=== PATIENT | female | born 1955 | race Caucasian/White ===

== ENCOUNTER → 2017-06-22 | Outpatient (CLI) | payer BC ==
--- NOTE | 2017-06-22 16:23 | XR ---
EXAMINATION TYPE: XR abdomen complete w decub DATE OF EXAM: 06/22/2017 HISTORY: Pain. Technique: 4 views of the abdomen are submitted. Comparison: None. Findings: There is no convincing evidence of pneumoperitoneum. The Bowel gas pattern is nonspecific and nonobstructive. No sizable air-fluid levels are seen. No mass effects are noted. No renal calcifications are identified. IMPRESSION: 1. Nonspecific nonobstructive bowel gas pattern
== END | disposition home or self-care (01) ==
LOC: RADXRMAIN 15:43
PROVIDERS: ATTEND Family Medicine
DX: R10.9 Unspecified abdominal pain (principal)
CPT/HCPCS: 74020

== ENCOUNTER → 2017-07-29 | Outpatient (CLI) | payer BC ==
--- NOTE | 2017-07-29 09:05 | MM ---
Reason for exam: additional evaluation requested from abnormal screening. Last mammogram was performed less than 1 month ago. History: Patient is postmenopausal. Took hormonal contraceptives for 16 years beginning at age 17. Physical Findings: Nurse did not find any significant physical abnormalities on exam. MG Work Up Mamm w CAD RT Spot compression CC, spot compression MLO, and ML view(s) were taken of the right breast. Prior study comparison: July 23, 2017, bilateral MG screening mammo w CAD. August 01, 2015, right breast MG 3d work up w/cad RT. The breast tissue is heterogeneously dense. This may lower the sensitivity of mammography. Asymmetry persists on spot compression and appears somewhat similar to prior exams. Precautionary ultrasound will be performed. These results were verbally communicated with the patient and result sheet given to the patient on 07/29/17. ASSESSMENT: Incomplete: need additional imaging evaluation, BI-RAD 0 RECOMMENDATION: Ultrasound of the right breast. (lower outer quadrant and if negative upper outer quadrant)
--- NOTE | 2017-07-29 09:08 | USB ---
Reason for exam: additional evaluation requested from abnormal screening. History: Patient is postmenopausal. Took hormonal contraceptives for 16 years beginning at age 17. US Breast Workup Limited RT Right breast ultrasound demonstrates no cystic or solid lesion seen. No suspicious sonographic finding. These results were verbally communicated with the patient and result sheet given to the patient on 07/29/17. ASSESSMENT: Benign, BI-RAD 2 RECOMMENDATION: Return to routine screening mammogram schedule for both breasts.
== END | disposition home or self-care (01) ==
LOC: RADMAMWWP 07:36
PROVIDERS: ATTEND Family Medicine
DX: R92.8 Other abnormal and inconclusive findings on diagnostic imaging of breast (principal)
CPT/HCPCS: 76642; G0206

== ENCOUNTER → 2017-08-03 | Outpatient (CLI) | payer BC ==
[2017-08-03 17:12] LABS: CH 29.7; CHCM 32.5; HCT 40.5 % (34.0-46.0); HDW 2.69; HGB 13.2 gm/dL (11.4-16.0); MCHC 32.6 g/dL (31.0-37.0); MCV 91.8 fL (80.0-100.0); Mean Platelet Volume 7.3; RBC 4.41 m/uL (3.80-5.40); RDW 13.6 % (11.5-15.5); WBC 10.4 k/uL (3.8-10.6)
[2017-08-03 17:35] LABS: Anion Gap 11 mmol/L; Blood Urea Nitrogen 10 mg/dL (7-17); Carbon Dioxide 26 mmol/L (22-30); Chloride 102 mmol/L (98-107); Non-African American GFR(MDRD) >60 (>60 ml/min/1.73 sqM); Potassium 3.9 mmol/L (3.5-5.1); Sodium 139 mmol/L (137-145)
--- NOTE | 2017-08-03 19:07 | CT ---
EXAMINATION TYPE: CT abdomen pelvis w con DATE OF EXAM: 08/03/2017 COMPARISON: NONE HISTORY: CT DLP: mGycm Automated exposure control for dose reduction was used. A single topogram was obtained that shows significant retention of barium in the large bowel and in p articular in diverticula in the sigmoid colon. This precludes a satisfactory diagnostic CT scan of th e abdomen and pelvis. The patient is rescheduled after bowel preparation.
== END | disposition home or self-care (01) ==
LOC: RADCTMAIN 16:36
PROVIDERS: ATTEND Surgery
DX: R10.32 Left lower quadrant pain (principal); Z53.8 Procedure and treatment not carried out for other reasons
CPT/HCPCS: 36415; 76380; 80051; 82378; 82565; 84520; 85027

== ENCOUNTER → 2017-08-12 | Outpatient (CLI) | payer BC ==
--- NOTE | 2017-08-12 16:39 | CT ---
EXAMINATION TYPE: CT abdomen pelvis w con DATE OF EXAM: 08/12/2017 COMPARISON: NONE INDICATION: Left lower quadrant pain-last week-with improvement DLP: 945.9 mGycm, Automated exposure control for dose reduction was used. CONTRAST: 100 mL of Omnipaque 300. Study performed with Oral Contrast TECHNIQUE: Axial images were obtained from above the diaphragm to the pubic rami in the axial plane a t 5 mm thick sections. Reconstructed images are reviewed on the computer in the coronal plane. FINDINGS: Limited CT sections are obtained the lung bases. The lung bases are clear. CT ABDOMEN: Liver: Normal Spleen: Normal Pancreas: Normal Adrenal glands: The adrenal glands are normal. Gallbladder: Normal Kidneys: No masses are evident. No hydronephrosis is present. No cysts are present. Delayed images were obtained through the kidneys, which remain unremarkable. Aorta: Vascular calcifications within the distal abdominal aorta. Aneurysmal dilatation is evident. Inferior vena cava: Normal. CT PELVIS: There is some beam hardening artifact within diverticulum of the sigmoid colon. No suspicious collect ions suggest abscess formation is identified. Fecal debris is within the colon. Small bowel loops dis tended with oral contrast normal. Oral contrast extends to the cecum. Appendix: Normal as visualized. This is small and somewhat difficult to identify. Urinary bladder: Urinary bladder is unremarkable. Genitourinary structures: Uterus appears unremarkable. Adnexal regions are clear. Osseous structures: No suspicious lytic or sclerotic lesions. IMPRESSIONS: 1. Diverticulosis without acute diverticulitis. Moderate fecal retention is within the ascending and transverse colon.
== END | disposition home or self-care (01) ==
LOC: RADCTMAIN 12:50
PROVIDERS: ATTEND Surgery
DX: K57.90 Diverticulosis of intestine, part unspecified, without perforation or abscess without bleeding (principal); K59.00 Constipation, unspecified
CPT/HCPCS: 74177; Q9967

== ENCOUNTER → 2018-11-25 | Day surgery (SDC) | payer BC ==
[~2018-11-25] MED LIST: LACTATED RINGERS 1,000 ML IV SCH; LIDOCAINE 1% 20 ML VIAL (10MG/ML) FOR IV START INTRADERMA PRN; LIDOCAINE 1% INJ 10MG/ML (20 ML MDV) ONE; PROPOFOL 10 MG/ML 20 ML VIAL IV ONE
[2018-11-25 08:47] VITALS: TEMP 97.4
--- NOTE | 2018-11-25 09:56 | P.GSHP ---
History of Present Illness H&P Date: 11/25/18 CHIEF COMPLAINT: Colon screen HISTORY OF PRESENT ILLNESS: The patient is a 63-year-old female who presents for colon screen. Lower endoscopy was offered for further evaluation and management. PAST MEDICAL HISTORY: Please see list. PAST SURGICAL HISTORY: Please see list. MEDICATIONS: Please see list. ALLERGIES: Please see list. SOCIAL HISTORY: No illicit drug use FAMILY HISTORY: No reports of Crohn disease or ulcerative colitis. REVIEW OF ORGAN SYSTEMS: CONSTITUTIONAL: No reports of fevers or chills. PHYSICAL EXAM: VITAL SIGNS: Stable GENERAL: Well-developed pleasant in no acute distress. HEENT: No scleral icterus. Extraocular movements grossly intact. Moist buccal mucosa. NECK: Supple without lymphadenopathy. CHEST: Unlabored respirations. Equal bilateral excursions. CARDIOVASCULAR: Regular rate and rhythm. Distal 2+ pulses. ABDOMEN: Soft, nontender, nondistended. MUSCULOSKELETAL: No clubbing, cyanosis, or edema. ASSESSMENT: 1. Colon screen. PLAN: 1. Recommend proceeding with a lower endoscopy Past Medical History Past Medical History: Hyperlipidemia Additional Past Medical History / Comment(s): borderline BP-"monitoring BP now as it has been going up"- no tx, divertiulosis, History of Any Multi-Drug Resistant Organisms: None Reported Past Surgical History: Tonsillectomy, Tubal Ligation Past Anesthesia/Blood Transfusion Reactions: Family History of Problems w/ Anesthesia Additional Past Anesthesia/Blood Transfusion Reaction / Comment(s): sister- PONV Smoking Status: Former smoker - Past Family History Mother Family Medical History: Cancer Father Family Medical History: Cancer Medications and Allergies Home Medications Medication Instructions Recorded Confirmed Type Ascorbic Acid [Vitamin C] 2,000 mg PO DAILY 11/22/18 11/25/18 History Cholecalciferol [Vitamin D3] 5,000 unit PO DAILY 11/22/18 11/25/18 History L.acidoph,Paracasei, B.lactis 1 each PO DAILY 11/22/18 11/25/18 History [Probiotic] Magnesium(Dose Unknown) 2 tab PO DAILY 11/22/18 11/25/18 History Welchol Packet 3.75 gm PO DAILY 11/22/18 11/25/18 History Allergies Allergy/AdvReac Type Severity Reaction Status Date / Time No Known Allergies Allergy Verified 11/25/18 08:41 Surgical - Exam Vital Signs Temp Pulse Resp BP Pulse Ox 97.4 F L 96 16 155/72 98 11/25/18 08:46 11/25/18 08:46 11/25/18 08:46 11/25/18 08:46 11/25/18 08:46
[2018-11-25 09:57] VITALS: RESP 18
--- NOTE | 2018-11-25 09:59 | P.PCN ---
Date of Procedure: 11/25/18 Description of Procedure: PREOPERATIVE DIAGNOSIS: Colonoscopy screening. POSTOPERATIVE DIAGNOSIS: Colonoscopy screening. External hemorrhoids. Severe sigmoid diverticulosis with diverticulitis OPERATION: Colonoscopy aborted to sigmoidoscopy SURGEON: Dawna Estes MD. ANESTHESIA: MAC. INDICATIONS: The patient is a 63-year-old female who presents for colonoscopy screening. She has no prior history of a complete colonoscopy. Benefits and risks were described and informed consent was obtained. DESCRIPTION OF PROCEDURE: The patient had undergone Gatorade, MiraLAX and Dulcolax prep. She had been brought into the operating room and laid in the left lateral decubitus position. After adequate intravenous sedation, the rectum was examined with 2% lidocaine jelly. External hemorrhoids were encountered. The rectal tone was loose. No lesions were palpated in the rectal vault. An Olympus colonoscope was advanced along the rectum to a very tortuous sigmoid colon. The scope was then exchanged for a pediatric colonoscope. Despite multiple maneuvers, the sigmoid colon had severe tortuosity with severe diverticulosis preventing further advancement of scope. The scope was passed to 25 cm from the anal verge. As the patient posed high risk for perforation with persistence of the procedure, the procedure was discontinued. The colon was desufflated. The patient had tolerated the procedure well. Withdrawal time was over 6 minutes. FINDINGS: Tortuous sigmoid colon with diverticulosis preventing further advancement of the scope. External prolapsed hemorrhoids, grade 3 Scope advanced to sigmoid colon at 25 cm. No arteriovenous malformations. No adenomatous polyps. No focal colitis. RECOMMENDATIONS: 1. Recommend immediate CT of the abdomen and pelvis for diverticulitis as patient complained of abdominal discomfort prior to colonoscopy Plan - Discharge Summary Discharge Rx Participant: No New Discharge Prescriptions: No Action Cholecalciferol [Vitamin D3] 5,000 unit PO DAILY Ascorbic Acid [Vitamin C] 2,000 mg PO DAILY L.acidoph,Paracasei, B.lactis [Probiotic] 1 each PO DAILY Welchol Packet 3.75 gm PO DAILY Magnesium(Dose Unknown) 2 tab PO DAILY Discharge Medication List Ascorbic Acid [Vitamin C] 2,000 mg PO DAILY 11/22/18 [History] Cholecalciferol [Vitamin D3] 5,000 unit PO DAILY 11/22/18 [History] L.acidoph,Paracasei, B.lactis [Probiotic] 1 each PO DAILY 11/22/18 [History] Magnesium(Dose Unknown) 2 tab PO DAILY 11/22/18 [History] Welchol Packet 3.75 gm PO DAILY 11/22/18 [History] Follow up Appointment(s)/Referral(s): Dawna Estes MD [STAFF PHYSICIAN] - 12/07/18 Patient Instructions/Handouts: *Surgery [facility] - (Anesthesia) Endoscopy Discharge Instructions, Diverticulitis (DC), Diverticulitis Diet (DC), Colonoscopy (DC) Discharge Disposition: HOME SELF-CARE
[2018-11-25 10:13] VITALS: BP 128/73; PULSE 73
--- NOTE | 2018-11-25 12:23 | CT ---
EXAMINATION TYPE: CT abdomen pelvis w con DATE OF EXAM: 11/25/2018 COMPARISON: 08/12/2017 HISTORY: 63-year-old female diverticulitis, incomplete colonoscopy TECHNIQUE: Contiguous axial scanning of the abdomen and pelvis following administration of 100 ml Iso daryn 300 IV contrast. Delayed images through the kidneys and coronal/sagittal reconstructions perform ed. CT DLP: 907.2 mGycm Automated exposure control for dose reduction was used. FINDINGS: Heart normal size without pericardial effusion. Lung bases clear without pleural effusion. No focal liver lesion or biliary ductal dilatation. Portal venous system is patent. Gallbladder, adrenal glands, kidneys, spleen, and pancreas appear within normal limits. Mild to moderate atherosclerotic calcifications infrarenal abdominal aorta and mild iliac arteries. N o aneurysm. The dilated small bowel, free fluid, or free air. Normal appendix. Slightly high riding cecum. Left-sided colonic diverticulosis, greatest in the sigmo id colon with some mild wall thickening along the proximal to mid sigmoid. There is some pericolonic fat stranding in this location, for example, refer to coronal image 65. No mesenteric or retroperitoneal lymphadenopathy. Bladder is urine distended. Uterus and both ovaries are visualized and no abnormal fluid collection i n the pelvis or pelvic lymphadenopathy. Bones: Mild degenerative disc disease throughout. Trace grade 1 anterolisthesis at L3-L4. IMPRESSION: 1. LEFT-SIDED COLONIC DIVERTICULOSIS, GREATEST IN THE SIGMOID COLON. THERE IS SOME MILD WALL THICKENI NG AND SOME MILD PERICOLONIC FAT STRANDING NEAR. THE FAT STRANDING COULD REPRESENT PROMINENT PERICOLO FARHAN VESSELS OR INFLAMMATION RELATING TO MILD ACUTE DIVERTICULITIS. CLINICALLY CORRELATE. 2. TORTUOUS RIGHT HEMICOLON WITH HIGH RIDING CECUM.
== END | disposition home or self-care (01) ==
LOC: ORWHC2ENDO 08:26
PROVIDERS: ATTEND Surgery Plastic and Reconstructive Surgery
DX: Z12.11 Encounter for screening for malignant neoplasm of colon (principal); E78.5 Hyperlipidemia, unspecified; K57.30 Diverticulosis of large intestine without perforation or abscess without bleeding; Z87.891 Personal history of nicotine dependence; K64.2 Third degree hemorrhoids
CPT/HCPCS: 74177; 45330; J2001; J2704; Q9967

== ENCOUNTER → 2019-08-26 | Outpatient (CLI) | payer BC ==
[2019-08-26 07:08] LABS: Basophils % (A) 1 %; Eosinophils # (A) 0.2 k/uL (0-0.7); Eosinophils % (A) 6 %; HCT 43.2 % (34.0-46.0); HGB 14.6 gm/dL (11.4-16.0); Lymphocytes # (A) 1.4 k/uL (1.0-4.8); Lymphocytes % (A) 41 %; MCH 30.7 pg (25.0-35.0); MCHC 33.7 g/dL (31.0-37.0); MCV 90.9 fL (80.0-100.0); Mean Platelet Volume 7.3; Monocytes # (A) 0.2 k/uL (0-1.0); Monocytes % (A) 7 %; Neutrophils # (A) 1.4 k/uL (1.3-7.7); Neutrophils % (A) 41 %; Platelet Count 201 k/uL (150-450); RBC 4.75 m/uL (3.80-5.40); RDW 12.2 % (11.5-15.5); WBC 3.3 k/uL (3.8-10.6)
[2019-08-26 13:15] LABS: African American GFR (CKD) 91.6 (60.0-200.0); Anion Gap 8.8 mmol/L (4.00-12.00); BUN/Creat Ratio 22.5 Ratio (12.00-20.00); Calcium 9.6 mg/dL (8.7-10.3); Carbon Dioxide 30.2 mmol/L (21.6-31.8); Chol/HDL Ratio 3.6; Potassium 4.5 mmol/L (3.5-5.5)
== END | disposition home or self-care (01) ==
LOC: LABWHC1 06:40
PROVIDERS: ATTEND Family Medicine
DX: Z11.59 Encounter for screening for other viral diseases (principal); I10 Essential (primary) hypertension; E78.2 Mixed hyperlipidemia; Z78.0 Asymptomatic menopausal state
CPT/HCPCS: 36415; 80048; 80061; 82306; 85025; 86803

== ENCOUNTER → 2019-10-28 | Outpatient (CLI) | payer BC ==
--- NOTE | 2019-10-31 09:15 | MM ---
Reason for exam: screening (asymptomatic). Last mammogram was performed 2 years and 3 months ago. History: Patient is postmenopausal. Took hormonal contraceptives for 16 years beginning at age 17. Physical Findings: A clinical breast exam by your physician is recommended on an annual basis and results should be correlated with mammographic findings. MG 3D Screening Mammo W/Cad Bilateral CC and MLO view(s) were taken. Prior study comparison: July 29, 2017, right breast MG work up mamm w CAD RT. July 23, 2017, bilateral MG screening mammo w CAD. The breast tissue is heterogeneously dense. This may lower the sensitivity of mammography. No suspicious abnormality. No significant changes when compared with prior studies. ASSESSMENT: Negative, BI-RAD 1 RECOMMENDATION: Routine screening mammogram of both breasts in 1 year.
== END | disposition home or self-care (01) ==
LOC: RADMAMWWP 07:16
PROVIDERS: ATTEND Family Medicine
DX: Z12.31 Encounter for screening mammogram for malignant neoplasm of breast (principal)
CPT/HCPCS: 77063; 77067

== ENCOUNTER 2020-06-19 18:47 | Emergency (ER) | payer BC ==
[2020-06-19 18:52] VITALS: BP 197/81; PULSE 86; RESP 16; TEMP 98.1
[2020-06-19] MEDS ORDERED: CEPHALEXIN 500 MG CAP PO STA (19:23)
[2020-06-19] MEDS ORDERED: SULFAMETHOX-TMP 800-160MG 1 EACH TAB PO STA (19:23)
--- NOTE | 2020-06-19 19:39 | ED ---
Upper Extremity HPI - General Chief Complaint: Extremity Injury, Upper Stated Complaint: SUDDEN PAIN IN FINGER Time Seen by Provider: 06/19/20 19:03 Source: patient Mode of arrival: wheelchair Limitations: no limitations - History of Present Illness Initial Comments: Patient is a 64-year-old female presenting to the emergency Department with complaints of pain in her left index finger that started 3 days ago. Patient states she noticed some pain down by her psych and MCP joint, she denies any injuries to her finger. She states she has not had any cuts or sores on her finger. She states over the past few days there is been some mild swelling to the area as well as redness and warmth. Patient states she's been doing warm water soaks and taking ibuprofen but is concerned something else is going on. She denies any fever, chills, nausea, vomiting. She denies any previous injuries or surgeries to this finger or hand. She has no further complaints at this time. - Related Data Home Medications Medication Instructions Recorded Confirmed Ascorbic Acid [Vitamin C] 2,000 mg PO DAILY 11/22/18 11/25/18 Cholecalciferol [Vitamin D3] 5,000 unit PO DAILY 11/22/18 11/25/18 L.acidoph,Paracasei, B.lactis 1 each PO DAILY 11/22/18 11/25/18 [Probiotic] Magnesium(Dose Unknown) 2 tab PO DAILY 11/22/18 11/25/18 Welchol Packet 3.75 gm PO DAILY 11/22/18 11/25/18 Previous Rx's Medication Instructions Recorded Cephalexin [Keflex] 500 mg PO Q6HR 7 Days #28 cap 06/19/20 Sulfamethox-Tmp 800-160Mg [Bactrim 1 each PO Q12HR 7 Days #14 tab 06/19/20 Ds] Allergies Allergy/AdvReac Type Severity Reaction Status Date / Time No Known Allergies Allergy Verified 06/19/20 18:52 Review of Systems ROS Statement: Those systems with pertinent positive or pertinent negative responses have been documented in the HPI. ROS Other: All systems not noted in ROS Statement are negative. Past Medical History Past Medical History: Hyperlipidemia Additional Past Medical History / Comment(s): borderline BP-"monitoring BP now as it has been going up"- no tx, divertiulosis, pre diabetic (diet controlled). History of Any Multi-Drug Resistant Organisms: None Reported Past Surgical History: Tonsillectomy, Tubal Ligation Past Anesthesia/Blood Transfusion Reactions: Family History of Problems w/ Anesthesia Additional Past Anesthesia/Blood Transfusion Reaction / Comment(s): sister- PONV Past Psychological History: No Psychological Hx Reported Smoking Status: Never smoker Past Alcohol Use History: None Reported Past Drug Use History: None Reported - Past Family History Mother Family Medical History: Cancer Father Family Medical History: Cancer General Exam - General Exam Comments Initial Comments: GENERAL: Patient is well-developed and well-nourished. Patient is nontoxic and in no acute distress. HEAD: Atraumatic, normocephalic. EYES: Pupils equal round and reactive to light, extraocular movements intact, sclera anicteric, conjunctiva are normal. Eyelids were unremarkable. ENT: Nares patent, oropharynx clear without exudates. Moist mucous membranes. NECK: Normal range of motion, supple without lymphadenopathy or JVD. LUNGS: Unlabored respirations. Breath sounds clear to auscultation bilaterally and equal. No wheezes rales or rhonchi. HEART: Regular rate and rhythm without murmurs, rubs or gallops. ABDOMEN: Soft, nontender, normoactive bowel sounds. No guarding, no rebound. No masses appreciated. : Deferred MUSCULOSKELETAL: Patient has full range of motion of her left hand and fingers. She is neurovascular intact. Her strength is normal. She does have some mild swelling to her left index finger compared to her right side. There is some mild erythema on the flexor side as well. She has only mild pain with palpation. Normal extremities with adequate strength and normal range of motion. No clubbing or cyanosis. NEUROLOGICAL: Patient is alert and oriented x 3. Motor and sensory are also intact. Normal speech, normal gait. PSYCH: Normal mood, normal affect. SKIN: Warm, Dry, normal turgor, no rashes or lesions noted. Limitations: no limitations Course Vital Signs 06/19/20 18:48 Temperature 98.1 F Pulse Rate 86 Respiratory 16 Rate Blood Pressure 197/81 O2 Sat by Pulse 99 Oximetry Medical Decision Making - Medical Decision Making Patient is a 64-year-old female presenting with pain, mild swelling, mild erythema and warmth to her left index finger 2 days. She has full range of motion and strength exam, only mild pain with palpation. She does have some mild to moderate swelling of her left index finger compared to the right side. There appears to be no lesions, cuts or sores on this finger. She is afebrile. I will start patient on Bactrim and Keflex to cover for possible skin infection. She will also follow up with orthopedics if symptoms persist. She is stable for discharge. I will give her a single [facility] Patient is in agreement with this plan of care. Strict return parameters were discussed with the patient she verbalized understanding. Disposition Clinical Impression: Cellulitis of left index finger Disposition: HOME SELF-CARE Condition: Stable Instructions (If sedation given, give patient instructions): Cellulitis (ED) Additional Instructions: Please return to the Emergency Department if symptoms worsen or any other concerns. Take both antibiotics as prescribed. Follow up with orthopedics as discussed. Prescriptions: Sulfamethox-Tmp 800-160Mg [Bactrim Ds] 1 each PO Q12HR 7 Days #14 tab Cephalexin [Keflex] 500 mg PO Q6HR 7 Days #28 cap Is patient prescribed a controlled substance at d/c from ED?: No Referrals: Sky Sykes DO [Primary Care Provider] - 1-2 days Judah Mckeon DO [Doctor of Osteopathic Medicine] - 1-2 days
== END 2020-06-19 19:44 | disposition home or self-care (01) ==
LOC: EC 18:47
DX: L03.012 Cellulitis of left finger (principal); E78.5 Hyperlipidemia, unspecified; Z79.899 Other long term (current) drug therapy
CPT/HCPCS: 99283

== ENCOUNTER → 2021-12-27 | Outpatient (CLI) | payer BC ==
--- NOTE | 2021-12-30 13:09 | MM ---
Reason for exam: screening (asymptomatic). Last mammogram was performed 2 years and 2 months ago. History: Patient is postmenopausal. Took hormonal contraceptives for 16 years beginning at age 17. Physical Findings: A clinical breast exam by your physician is recommended on an annual basis and results should be correlated with mammographic findings. MG 3D Screening Mammo W/Cad Bilateral CC and MLO view(s) were taken. Prior study comparison: October 28, 2019, bilateral MG 3d screening mammo w/cad. July 29, 2017, right breast MG work up mamm w CAD RT. There are scattered fibroglandular densities. 8-9 o'clock posterior grouped microcalcifications appear to be increasing. Left 8mm 12 o'clock posterior lobulated nodularity is unchanged. ASSESSMENT: Incomplete: need additional imaging evaluation, BI-RAD 0 RECOMMENDATION: Special view mammogram of the right breast. (magnification) [facility] will attempt to contact patient to return for supplemental views.
== END | disposition home or self-care (01) ==
LOC: RADMAMWWP 08:09
PROVIDERS: ATTEND Family Medicine
DX: Z12.31 Encounter for screening mammogram for malignant neoplasm of breast (principal); Z78.0 Asymptomatic menopausal state
CPT/HCPCS: 77063; 77067

== ENCOUNTER → 2022-01-01 | Outpatient (CLI) | payer BC ==
--- NOTE | 2022-01-02 09:48 | MM ---
Reason for exam: additional evaluation requested from abnormal screening. Last mammogram was performed less than 1 month ago. History: Patient is postmenopausal. Took hormonal contraceptives for 16 years beginning at age 17. Physical Findings: A clinical breast exam by your physician is recommended on an annual basis and results should be correlated with mammographic findings. MG 3D Work Up W/Cad RT CC with magnification, ML with magnification, ML, and LM view(s) were taken of the right breast. Technologist: Meghann Fisher, RT (R)(M) Prior study comparison: December 27, 2021, bilateral MG 3d screening mammo w/cad. October 28, 2019, bilateral MG 3d screening mammo w/cad. There are scattered fibroglandular densities. Finding: There are indeterminate grouped/clustered calcifications in the outer quadrant, middle position of the right breast, these appear greater on CC view and are new from 2020. New finding since December 27, 2021 and October 28, 2019. Results were given to the patient verbally at the time of the exam. ASSESSMENT: Suspicious, BI-RAD 4 RECOMMENDATION: Stereotactic core biopsy of the right breast. Called Dr. Sykes's office with mammographic findings and has scheduled an appointment for the patient for 01/02/22 at 9:[address] Wolff. Biopsy scheduled for 01/09/22 at 7:00. PRELIMINARY REPORT CALLED AND FAXED TO DR. WOLFF ON 01/01/22.
== END | disposition home or self-care (01) ==
LOC: RADMAMWWP 14:55
PROVIDERS: ATTEND Family Medicine
DX: R92.8 Other abnormal and inconclusive findings on diagnostic imaging of breast (principal); Z78.0 Asymptomatic menopausal state
CPT/HCPCS: 77061; 77065

== ENCOUNTER → 2022-01-02 | Outpatient (CLI) | payer BC ==
[2022-01-02 10:02] VITALS: BP 171/78; PULSE 75; RESP 18; TEMP 98.1
--- NOTE | 2022-01-02 10:45 | P.GSHP ---
History of Present Illness H&P Date: 01/02/22 Chief Complaint: abnormal right breast calcifications Dania is a 66 year old white female seen in consultation for DR. Sykes regarding microcalcifications of concern in her right breast. She underwent a screening mammogram on 12-27-21 showed an area of question in the right breast, she subsequently underwent additional views of the right breast on . Recommendation was for a stereotactic core biopsy of microcalcifications of concern in the right breast. She does not feel any lumps masses or nodules of concern in either breast. She is not complaining of any nipple discharge or skin changes. It is never had any breast surgery or biopsies. She has not had any trauma or infection of the breast. She was recently diagnosed with a low WBC count and she has an appointment with Dr. Grimaldo next week. Caffiene: 3 cups coffee/day nicotine: none chocolate: daily Family History: mother: lung cancer smoker father: lung cancer, smoker Hormonal history: menarche: 16 , breast fed: no, age at first : 30 menopause: 50 hormones: none Surgical History: tubal tonsil Medical history: Low white blood cell count being evaluated next week diverticulosis Social History: nicotine: none alcohol: none drugs: none - Constitutional Constitutional: Denies chills, Denies fever - EENT Eyes: denies blurred vision, denies pain Ears: deny: decreased hearing, tinnitus Ears, nose, mouth and throat: Denies headache, Denies sore throat - Breasts Breasts: bilateral: as per HPI - Cardiovascular Cardiovascular: Denies chest pain, Denies shortness of breath - Respiratory Respiratory: Denies cough, Denies 7 - Gastrointestinal Gastrointestinal: Denies abdominal pain, Denies diarrhea, Denies nausea, Denies vomiting - Genitourinary (Female) Genitourinary: Denies dysuria, Denies hematuria - Menstruation Menstruation: Reports postmenopausal - Musculoskeletal Musculoskeletal: Denies myalgias - Integumentary Integumentary: Denies pruritus, Denies rash - Neurological Neurological: Denies numbness, Denies weakness - Psychiatric Psychiatric: Denies anxiety, Denies depression - Endocrine Comment: intentional weight change 28 pounds last two years Endocrine: Reports weight change - Hematologic/Lymphatic Hematologic/Lymphatic: Reports as per HPI - Allergic/Immunologic Allergic/Immunologic: Reports as per HPI Past Medical History Past Medical History: Hyperlipidemia Additional Past Medical History / Comment(s): borderline BP-"monitoring BP now as it has been going up"- no tx, divertiulosis, pre diabetic (diet controlled). History of Any Multi-Drug Resistant Organisms: None Reported Past Surgical History: Tonsillectomy, Tubal Ligation Past Anesthesia/Blood Transfusion Reactions: Family History of Problems w/ Anesthesia Additional Past Anesthesia/Blood Transfusion Reaction / Comment(s): sister- PONV Past Psychological History: No Psychological Hx Reported Smoking Status: Never smoker Past Alcohol Use History: None Reported Additional Past Alcohol Use History / Comment(s): quit smoking 17 yrs ago, smoked for 20 yrs Past Drug Use History: None Reported - Past Family History Mother Family Medical History: Cancer Father Family Medical History: Cancer Medications and Allergies Home Medications Medication Instructions Recorded Confirmed Type Ascorbic Acid [Vitamin C] 2,000 mg PO DAILY 11/22/18 01/02/22 History Cholecalciferol [Vitamin D3] 5,000 unit PO DAILY 11/22/18 01/02/22 History L.acidoph,Paracasei, B.lactis 1 each PO DAILY 11/22/18 01/02/22 History [Probiotic] Allergies Allergy/AdvReac Type Severity Reaction Status Date / Time No Known Allergies Allergy Verified 01/02/22 09:58 Surgical - Exam Vital Signs Temp Pulse Resp BP Pulse Ox 98.1 F 75 18 171/78 97 01/02/22 10:00 01/02/22 10:00 01/02/22 10:00 01/02/22 10:00 01/02/22 10:00 BMI 27.3 - General no distress - Eyes normal ocular movement - Neck trachea midline - Respiratory normal respiratory effort - Cardiovascular Rhythm: regular Heart Sounds: normal: S1, S2 - Abdomen Abdomen: soft, non tender, no guarding, no rigid, no rebound - Integumentary normal turgor - Neurologic no disoriented, no combative - Musculoskeletal normal gait, normal posture - Psychiatric oriented to time, oriented to person, oriented to place, speech is normal, memory intact Breast Exam: BRA: 40D inspection: bilateral grade 2 ptosis palpation: right breast: Multiple positional exam fibrocystic changes no dominant masses or nodules of concern Right axilla: No adenopathy of concern Left breast: Multi-positional exam fibrocystic changes no dominant masses or nodules of concern Left axilla: No adenopathy of concern Results Mammogram reviewed in detail with Dr. Mccartney; calcifications are very small at 3 to 9 o'clock position and appeared to be increasing Assessment and Plan Assessment: Impression: Radiographic abnormality right breast Will await blood cell count/pending appointment with Dr. Grimaldo Plan: sterotactic core biopsy of the right breast appointment with DR. Grimaldo prior to biopsy Risk and benefits of the procedure were discussed with the patient. Risks include but are not limited to bleeding, infection, reaction to the anesthetic. The patient understands that the lesion is somewhat amorphous and hard to see and if it were not able to be seen on the stereo biopsy that the procedure may be canceled. Alternatives such as watchful waiting a resection the operating room R discussed but not recommended. Cc: Dr. Sykes
== END ==
LOC: WWCWWP 09:45
PROVIDERS: ATTEND Surgery
DX: R92.8 Other abnormal and inconclusive findings on diagnostic imaging of breast (principal); E78.5 Hyperlipidemia, unspecified; Z87.891 Personal history of nicotine dependence

== ENCOUNTER → 2022-01-17 | Day surgery (SDC) | payer BC ==
[2022-01-17 07:18] VITALS: RESP 16
--- NOTE | 2022-01-17 08:48 | P.PCN ---
Date of Procedure: 01/17/22 Preoperative Diagnosis: Microcalcifications of concern right breast Postoperative Diagnosis: Same Procedure(s) Performed: Right breast stereotactic core biopsy Anesthesia: local Surgeon: Savannah Wood Pathology: other (breast tissue with microcalcifications present in radiograph of specimen) Condition: stable Disposition: same day Indications for Procedure: Microcalcifications of concern right breast Operative Findings: X-ray of specimen reveals calcifications present Description of Procedure: The patient is a 66-year-old white female who on a mammogram was noted to have microcalcifications of concern in her right breast in the outer mid portion of the breast. Stereotactic core biopsy was recommended. Risks and benefits of the procedure were discussed with the patient as well as alternatives and the patient wished to proceed. The patient was taken to the stereotactic core biopsy room. She was positioned prone on the Lorad table. A weekend anchor film was obtained. The area of concern was identified. The area was targeted. A lateral to medial approach was utilized. The breast was prepped using Betadine. 20 mL of 1% lidocaine were used to anesthetize the area of concern. An 18-gauge vacuum-assisted core rotating biopsy needle was driven to the correct coordinates. Prefire films were obtained. The needle was noted to be in the correct location. The needle was fired. Post fire films were obtained, the needle was noted to be in the correct location. 24 core specimens were obtained. Radiograph of the specimens revealed the calcifications of concern to be present. After we were assured that hemostasis was attained and the wound was well irrigated a secure tameka clip was placed. Radiograph revealed the secure tameka clip was in the correct location. The patient tolerated the procedure in stable condition. The patient will follow-up with Dr. Aquino next week. The specimen was sent to pathology.
[2022-01-17 08:58] VITALS: BP 152/77; PULSE 81; TEMP 98.5
--- NOTE | 2022-01-17 11:41 | MM ---
The patient is a 66-year-old white female who on a mammogram was noted to have microcalcifications of concern in her right breast in the outer mid portion of the breast. Stereotactic core biopsy was recommended. Risks and benefits of the procedure were discussed with the patient as well as alternatives and the patient wished to proceed. The patient was taken to the stereotactic core biopsy room. She was positioned prone on the Lorad table. A haulage boss film was obtained. The area of concern was identified. The area was targeted. A lateral to medial approach was utilized. The breast was prepped using Betadine. 20 mL of 1% lidocaine were used to anesthetize the area of concern. An 18-gauge vacuum-assisted core rotating biopsy needle was driven to the correct coordinates. Prefire films were obtained. The needle was noted to be in the correct location. The needle was fired. Post fire films were obtained, the needle was noted to be in the correct location. 24 core specimens were obtained. Radiograph of the specimens revealed the calcifications of concern to be present. After we were assured that hemostasis was attained and the wound was well irrigated a secure tameka clip was placed. Radiograph revealed the secure tameka clip was in the correct location. The patient tolerated the procedure in stable condition. The patient will follow-up with Dr. Aquino next week. The specimen was sent to pathology. [facility] HOSPITALMindy
== END ==
LOC: RADMAMWWP 07:03
PROVIDERS: ATTEND Surgery
DX: N60.11 Diffuse cystic mastopathy of right breast (principal); R92.8 Other abnormal and inconclusive findings on diagnostic imaging of breast; N60.81 Other benign mammary dysplasias of right breast; N62 Hypertrophy of breast
CPT/HCPCS: 88305; 19081; A4648; J2001

== ENCOUNTER → 2022-01-20 | Outpatient (CLI) | payer BC ==
--- NOTE | 2022-01-20 10:41 | US ---
EXAMINATION TYPE: US abdomen complete DATE OF EXAM: 01/20/2022 COMPARISON: NONE CLINICAL HISTORY: R16.1 SPLENOMEGALY. EXAM MEASUREMENTS: Liver Length: 13.4 cm Gallbladder Wall: 0.2 cm CBD: 0.4 cm Spleen: 9.0 cm Right Kidney: 10.3 x 4.4 x 5.3 cm Left Kidney: 10.6 x 5.6 x 5.5 cm Extensive midline bowel gas, technically difficult somewhat limited study. Pancreas: Obscured by bowel gas Liver: mildly heterogeneous Gallbladder: wnl as seen, fundus obscured by overlying bowel gas Evidence for sonographic Choudhury's sign: no CBD: 0.4 Spleen: limited visualization due to overlying bowel gas Right Kidney: Inferior pole obscured by bowel gas, wnl as seen Left Kidney: Inferior pole obscured by bowel gas, wnl as seen Upper IVC: wnl Abd Aorta: bifurcation obscured by overlying bowel gas The intrahepatic portion of the IVC and proximal abdominal aorta are within normal limits. There is no evidence of cholelithiasis. Common bile duct is unremarkable. The visualized portions of the gardner creas are homogenous. The spleen is unremarkable. Kidneys are symmetric and free of hydronephrosis. No renal lesions are seen. IMPRESSION: Findings suggest mild hepatic steatosis.
== END | disposition home or self-care (01) ==
LOC: RADUSWWP 09:36
PROVIDERS: ATTEND Internal Medicine Hematology & Oncology
DX: R16.1 Splenomegaly, not elsewhere classified (principal)
CPT/HCPCS: 76700

== ENCOUNTER → 2022-01-31 | Outpatient (CLI) | payer BC ==
[2022-01-31 13:23] VITALS: BP 167/74; PULSE 64; RESP 17; TEMP 98.7
--- NOTE | 2022-01-31 13:44 | P.PN ---
Subjective Progress Note Date: 01/31/22 Principal diagnosis: fibrocystic breast changes Dania is a 66 year old white female status post right breast stero biopsy on 01-17-22. She tolerated the procedure without difficulty. Pathology revealed fibrocystic changes including cysts, apocrine metaplasia, fibrosis and focal mild usual ductal type hyperplasia. Additional x-ray levels were obtained and benign calcifications were identified in block a 1. The radiographs were reviewed by Dr. Pineda it was felt that this was benign and concordant in follow-up mammogram of the right breast in 6 months time was recommended. Objective - Vital Signs Vital signs: Vital Signs Temp 98.7 F 01/31/22 13:21 Pulse 64 01/31/22 13:21 Resp 17 01/31/22 13:21 BP 167/74 01/31/22 13:21 Pulse Ox 97 01/31/22 13:21 Intake & Output 01/30/22 01/31/22 01/31/22 18:59 06:59 18:59 Weight 78.925 kg - Exam BMI: 27.3 - Constitutional General appearance: Present: cooperative - EENT Eyes: Present: EOMI ENT: Present: hearing grossly normal - Neck Neck: Present: normal ROM - Respiratory Respiratory: bilateral: CTA - Cardiovascular Heart sounds: normal: S1, S2 - Integumentary Integumentary Comment(s): Right breast: Biopsy site mild ecchymosis, clean and dry no evidence of infection Assessment and Plan Assessment: Impression: Patient status post right stereotactic core biopsy on 01-17-22; this was benign and concordant Plan: right breast mammogram in 6 months with physician exam at that time Cc: Dr. Sykes
== END ==
LOC: WWCWWP 13:14
PROVIDERS: ATTEND Surgery
DX: N60.91 Unspecified benign mammary dysplasia of right breast (principal)

== ENCOUNTER → 2022-07-22 | Outpatient (CLI) | payer BC ==
--- NOTE | 2022-07-22 09:16 | MM ---
Reason for Exam: Follow-up at short interval from prior study. Last screening mammogram was performed 7 month(s) ago. Patient History: Menarche at age 16. First Full-Term at age 29. Postmenopausal. Hormonal Contraceptives for 16 years from age 17 until age 35. 01/17/2022, Benign Core Biopsy on the right side. Risk Values: Tia 5 year model risk: 2.0%. NCI Lifetime model risk: 7.5%. Prior Study Comparison: 10/28/2019 Bilateral Screening Mammogram, [facility]. 12/27/2021 Bilateral Screening Mammogram, [facility]. 01/01/2022 Right Diagnostic Mammogram, [facility]. Tissue Density: Right: The breast tissue is heterogeneously dense. This may lower the sensitivity of mammography. Findings: Analyzed By CAD. Core markers within the right breast. Some residual calcification is adjacent. No suspicious spiculated or lobular masses suspicious cluster of calcifications architectural distortion or other secondary signs of malignancy are radiographically apparent. Overall Assessment: Benign, BI-RAD 2 Management: Screening Mammogram of both breasts in 6 months. A clinical breast exam by your physician is recommended on an annual basis and results should be correlated with mammographic findings. This exam should not preclude additional follow-up of suspicious palpable abnormalities. Results were given to the patient verbally at the time of exam. Electronically signed and approved by: Pasquale Larry D.O. Radiologis
== END | disposition home or self-care (01) ==
LOC: RADMAMWWP 08:49
PROVIDERS: ATTEND Surgery
DX: R92.8 Other abnormal and inconclusive findings on diagnostic imaging of breast (principal)
CPT/HCPCS: 77061; 77065

== ENCOUNTER → 2022-07-31 | Outpatient (CLI) | payer BC ==
[2022-07-31 12:57] VITALS: BP 151/70; PULSE 71; RESP 16; TEMP 98.1
--- NOTE | 2022-07-31 13:16 | P.PN ---
Subjective Progress Note Date: 07/31/22 Dania is a 66 year old white female seen in consultation for DR. Sykes regarding microcalcifications of concern in her right breast. She underwent a screening mammogram on 12-27-21 showed an area of question in the right breast, she subsequently underwent additional views of the right breast on . Recommendation was for a stereotactic core biopsy of microcalcifications of concern in the right breast. She does not feel any lumps masses or nodules of concern in either breast. She is not complaining of any nipple discharge or skin changes. It is never had any breast surgery or biopsies. She has not had any trauma or infection of the breast. She was recently diagnosed with a low WBC count and she has an appointment with Dr. Grimaldo next week. She underwent a right breast stereotactic core biopsy and [id number]. This revealed fibrocystic changes including cysts, apocrine metaplasia, and focal mild usual ductal hyperplasia. On she underwent a right breast mammogram. This was benign BIRADS 2. Does not feel any new lumps masses or nodules of concern in either breast. Tia risk evaluation revealed a five-year risk of breast cancer 2%. We have discussed and she has declined hormone prevention. Caffiene: 3 cups coffee/day nicotine: none chocolate: daily Family History: mother: lung cancer smoker father: lung cancer, smoker Hormonal history: menarche: 16 , breast fed: no, age at first : 30 menopause: 50 hormones: none Surgical History: tubal tonsil Medical history: Low white blood cell count being evaluated next week diverticulosis Social History: nicotine: none alcohol: none drugs: none - Constitutional Constitutional: Denies chills, Denies fever - EENT Eyes: denies blurred vision, denies pain Ears: deny: decreased hearing, tinnitus Ears, nose, mouth and throat: Denies headache, Denies sore throat - Breasts Breasts: bilateral: as per HPI - Cardiovascular Cardiovascular: Denies chest pain, Denies shortness of breath - Respiratory Respiratory: Denies cough - Gastrointestinal Gastrointestinal: Denies abdominal pain, Denies diarrhea, Denies nausea, Denies vomiting - Genitourinary (Female) Genitourinary: Denies dysuria, Denies hematuria - Menstruation Menstruation: Reports postmenopausal - Musculoskeletal Musculoskeletal: Denies myalgias - Integumentary Integumentary: Denies pruritus, Denies rash - Neurological Neurological: Denies numbness, Denies weakness - Psychiatric Psychiatric: Denies anxiety, Denies depression - Endocrine Comment: intentional weight change 28 pounds last two years Endocrine: Reports weight change - Hematologic/Lymphatic Hematologic/Lymphatic: Reports as per HPI - Allergic/Immunologic Allergic/Immunologic: Reports as per HPI Objective - Vital Signs Vital signs: Vital Signs Temp 98.1 F 07/31/22 12:55 Pulse 71 07/31/22 12:55 Resp 16 07/31/22 12:55 BP 151/70 07/31/22 12:55 Pulse Ox 98 07/31/22 12:55 FiO2 Intake & Output 07/30/22 07/31/22 07/31/22 18:59 06:59 18:59 Weight 79.379 kg - Constitutional General appearance: Present: cooperative - EENT Eyes: Present: EOMI ENT: Present: hearing grossly normal - Neck Neck: Present: normal ROM - Respiratory Respiratory: bilateral: CTA - Cardiovascular Rhythm: regular Heart sounds: normal: S1, S2 - Gastrointestinal General gastrointestinal: Present: soft - Integumentary Integumentary: Present: normal turgor - Musculoskeletal Musculoskeletal: Present: gait normal - Psychiatric Psychiatric: Present: A&O x's 3, appropriate affect, intact judgment & insight - Additional findings Additional findings: Breast Exam: BRA: 40D inspection: Bilateral grade 2 ptosis Palpation: Right breast: Multi-positional exam fibrocystic changes no dominant masses or nodules of concern Right axilla: No adenopathy of concern Left breast: Multi-positional exam fibrocystic changes no dominant masses or nodules of concern Left axilla: No adenopathy of concern Assessment and Plan Assessment: Impression: Fibrocystic breast changes Stable right breast status post stereotactic core biopsy Plan: Bilateral mammogram 6 months with physician exam at that time Cc: Dr. Sykes
== END | disposition home or self-care (01) ==
LOC: WWCWWP 12:33
PROVIDERS: ATTEND Surgery
DX: Z53.9 Procedure and treatment not carried out, unspecified reason (principal)

== ENCOUNTER → 2023-01-20 | Outpatient (CLI) | payer BC ==
--- NOTE | 2023-01-21 09:08 | MM ---
Reason for Exam: Screening (asymptomatic). Last mammogram was performed 1 year(s) and 1 month(s) ago. Patient History: Menarche at age 16. First Full-Term at age 29. Postmenopausal. Hormonal Contraceptives for 16 years from age 17 until age 35. 01/17/2022, Benign Core Biopsy on the right side. Risk Values: Tia 5 year model risk: 2.0%. NCI Lifetime model risk: 7.2%. Prior Study Comparison: 12/27/2021 Bilateral Screening Mammogram, [facility]. 01/01/2022 Right Diagnostic Mammogram, [facility]. 07/22/2022 Right MG 3D diag mammo w/cad RT, [facility]. Tissue Density: The breast tissue is heterogeneously dense. This may lower the sensitivity of mammography. Findings: Analyzed By CAD. Mammotome biopsy clip right breast redemonstrated. There is no suspicious group of microcalcifications or new suspicious mass in either breast. Overall Assessment: Benign, BI-RAD 2 Management: Screening Mammogram of both breasts in 1 year. . Patient should continue monthly self-breast exams. A clinical breast exam by your physician is recommended on an annual basis. This exam should not preclude additional follow-up of suspicious palpable abnormalities. Note on Tia scores and lifetime risk: 1. A Tia score greater than 3% is considered moderate risk. If this is the case, consider specialist referral to assess eligibility for a risk reducing agent. 2. If overall lifetime risk for the development of breast cancer is 20% or higher, the patient may qualify for future screening with alternating mammogram and breast MRI. Electronically signed and approved by: Nakul Garza M.D.
== END | disposition home or self-care (01) ==
LOC: RADMAMWWP 09:16
PROVIDERS: ATTEND Surgery
DX: Z12.31 Encounter for screening mammogram for malignant neoplasm of breast (principal); Z78.0 Asymptomatic menopausal state
CPT/HCPCS: 77063; 77067

== ENCOUNTER → 2024-01-22 | Outpatient (CLI) | payer BC, MEDICARE ==
--- NOTE | 2024-01-22 10:36 | MM ---
Reason for Exam: Screening (asymptomatic). Last screening mammogram was performed 12 month(s) ago. Patient History: Menarche at age 16. First Full-Term at age 29. Postmenopausal. Hormonal Contraceptives for 16 years from age 17 until age 35. 01/17/2022, Benign Core Biopsy on the right side. Risk Values: Tia 5 year model risk: 2.0%. NCI Lifetime model risk: 6.9%. Prior Study Comparison: 01/01/2022 Right Diagnostic Mammogram, [facility]. 07/22/2022 Right MG 3D diag mammo w/cad RT, [facility]. 01/20/2023 Bilateral MG 3D screening mammo w/cad, [facility]. Tissue Density: The breasts are heterogeneously dense, which may obscure small masses. Findings: Analyzed By CAD. Right breast biopsy clip. Right breast: There is no suspicious group of microcalcifications or new suspicious mass. Left breast: There is no suspicious group of microcalcifications or new suspicious mass. Overall Assessment: Benign, BI-RAD 2 Management: Screening Mammogram of both breasts in [address] [facility] will attempt to contact patient to return for supplemental views and ultrasound if indicated. Patient should continue monthly self-breast exams. A clinical breast exam by your physician is recommended on an annual basis. This exam should not preclude additional follow-up of suspicious palpable abnormalities. Note on Tia scores and lifetime risk: 1. A Tia score greater than 3% is considered moderate risk. If this is the case, consider specialist referral to assess eligibility for a risk reducing agent. 2. If overall lifetime risk for the development of breast cancer is 20% or higher, the patient may qualify for future screening with alternating mammogram and breast MRI. Electronically signed and approved by: Gordo Leung DO
== END | disposition home or self-care (01) ==
LOC: RADMAMWWP 08:55
PROVIDERS: ATTEND Surgery
DX: Z12.31 Encounter for screening mammogram for malignant neoplasm of breast (principal); Z78.0 Asymptomatic menopausal state
CPT/HCPCS: 77063; 77067

== ENCOUNTER → 2024-01-28 | Outpatient (CLI) | payer MEDICARE, BC ==
--- NOTE | 2024-01-28 12:01 | P.PN ---
Subjective Progress Note Date: 01/28/24 Principal diagnosis: fibrocystic breast changes A 68-year-old white female status post stereotactic core biopsy of the right breast on 01-17-2022. This was benign specific. It revealed fibrocystic changes including cysts, apocrine metaplasia, and focal mild usual ductal hyperplasia. She underwent a bilateral mammogram on 01-22-2024 this was benign BI-RADS 2. This is personally reviewed. She is not complaining of any new lumps masses or nodules of concern in either breast. Tia 5-year risk 2 % patient declined chemoprophylaxis after discussion NCI lifetime risk 6.9 % Caffiene: 3 cups coffee/day nicotine: none chocolate: daily Family History: mother: lung cancer smoker father: lung cancer, smoker Hormonal history: menarche: 16 , breast fed: no, age at first : 30 menopause: 50 hormones: none Surgical History: tubal tonsil Medical history: Low white blood cell count being followed by medical oncology diverticulosis Social History: nicotine: none alcohol: none drugs: none - Constitutional Constitutional: Denies chills, Denies fever - EENT Eyes: denies blurred vision, denies pain Ears: deny: decreased hearing, tinnitus Ears, nose, mouth and throat: Denies headache, Denies sore throat - Breasts Breasts: bilateral: as per HPI - Cardiovascular Cardiovascular: Denies chest pain, Denies shortness of breath - Respiratory Respiratory: Denies cough - Gastrointestinal Gastrointestinal: Denies abdominal pain, Denies diarrhea, Denies nausea, Denies vomiting - Genitourinary (Female) Genitourinary: Denies dysuria, Denies hematuria - Menstruation Menstruation: Reports postmenopausal - Musculoskeletal Musculoskeletal: Denies myalgias - Integumentary Integumentary: Denies pruritus, Denies rash - Neurological Neurological: Denies numbness, Denies weakness - Psychiatric Psychiatric: Denies anxiety, Denies depression - Endocrine Comment: intentional weight change 28 pounds last two years Endocrine: Reports weight change - Hematologic/Lymphatic Hematologic/Lymphatic: Reports as per HPI - Allergic/Immunologic Allergic/Immunologic: Reports as per HPI Objective - Constitutional General appearance: Present: cooperative - EENT Eyes: Present: EOMI ENT: Present: hearing grossly normal - Neck Neck: Present: normal ROM - Respiratory Respiratory: bilateral: CTA - Cardiovascular Rhythm: regular Heart sounds: normal: S1, S2 - Gastrointestinal General gastrointestinal: Present: soft - Integumentary Integumentary: Present: normal turgor - Musculoskeletal Musculoskeletal: Present: gait normal - Psychiatric Psychiatric: Present: A&O x's 3, appropriate affect, intact judgment & insight - Additional findings Additional findings: Breast Exam: BRA: 40D inspection: Bilateral grade 2 ptosis Palpation: Right breast: Multi-positional exam fibrocystic changes no dominant masses or nodules of concern Right axilla: No adenopathy of concern Left breast: Multi-positional exam fibrocystic changes no dominant masses or nodules of concern Left axilla: No adenopathy of concern Assessment and Plan Assessment: Impression: Fibrocystic breast changes Stable right breast status post stereotactic core biopsy 01-17-22 bilateral mammogram on 01-22-24 BIRAD 2 Plan: Bilateral mammogram 1 year, January 2025 with follow up follow up sooner any concerns Cc: Dr. Sykes
[2024-01-28 12:54] VITALS: BP 163/74; PULSE 71; RESP 16; TEMP 98.2
== END ==
LOC: WWCWWP 11:39
PROVIDERS: ATTEND Surgery
DX: R92.8 Other abnormal and inconclusive findings on diagnostic imaging of breast (principal); N60.11 Diffuse cystic mastopathy of right breast; N60.12 Diffuse cystic mastopathy of left breast; N62 Hypertrophy of breast; N60.81 Other benign mammary dysplasias of right breast; Z87.891 Personal history of nicotine dependence

== ENCOUNTER → 2025-01-23 | Outpatient (CLI) | payer MEDICARE, BC ==
--- NOTE | 2025-01-23 11:45 | MM ---
Reason for Exam: Screening (asymptomatic). Last screening mammogram was performed 12 month(s) ago. Patient History: Menarche at age 16. First Full-Term at age 29. Postmenopausal. Hormonal Contraceptives for 16 years from age 17 until age 35. 01/17/2022, Benign Core Biopsy on the right side. Risk Values: Tia 5 year model risk: 2.0%. NCI Lifetime model risk: 6.6%. Prior Study Comparison: 07/22/2022 Right MG 3D diag mammo w/cad RT, [facility]. 01/20/2023 Bilateral MG 3D screening mammo w/cad, [facility]. 01/22/2024 Bilateral MG 3D screening mammo w/cad, [facility]. Tissue Density: The breasts are heterogeneously dense, which may obscure small masses. Findings: Analyzed By CAD. Right breast biopsy clip. Right breast: There is no suspicious group of microcalcifications or new suspicious mass. Left breast: There is no suspicious group of microcalcifications or new suspicious mass. Overall Assessment: Benign, BI-RAD 2 Management: Screening Mammogram of both breasts in [address] [facility] will attempt to contact patient to return for supplemental views and ultrasound if indicated. Patient should continue monthly self-breast exams. A clinical breast exam by your physician is recommended on an annual basis. This exam should not preclude additional follow-up of suspicious palpable abnormalities. Note on Tia scores and lifetime risk: 1. A Tia score greater than 3% is considered moderate risk. If this is the case, consider specialist referral to assess eligibility for a risk reducing agent. 2. If overall lifetime risk for the development of breast cancer is 20% or higher, the patient may qualify for future screening with alternating mammogram and breast MRI. [facility], , 01/23/2025 11:42 AM. Electronically signed and approved by: Gordo Leung DO
== END | disposition home or self-care (01) ==
LOC: RADMAMWWP 09:55
PROVIDERS: ATTEND Surgery
DX: Z12.31 Encounter for screening mammogram for malignant neoplasm of breast (principal); R92.333 Mammographic heterogeneous density, bilateral breasts; Z78.0 Asymptomatic menopausal state; Z92.0 Personal history of contraception
CPT/HCPCS: 77063; 77067

== ENCOUNTER → 2025-01-26 | Outpatient (CLI) | payer MEDICARE, BC ==
[2025-01-26 09:50] VITALS: BP 182/75; PULSE 66; RESP 16; TEMP 97.8
--- NOTE | 2025-01-26 10:08 | P.PN ---
Subjective Progress Note Date: 01/26/25 Principal diagnosis: fibrocystic breast disease 01-26-25 Principal diagnosis: fibrocystic breast changes Dania is a 69-year-old white female status post stereotactic core biopsy of the right breast on 01-17-2022. This was benign specific. It revealed fibrocystic changes including cysts, apocrine metaplasia, and focal mild usual ductal hyperplasia. She underwent a bilateral mammogram on 01-23-25 this was benign BI- RADS 2. This is personally interpreted. She is not complaining of any new lumps masses or nodules of concern in either breast. She is complaining of left hip pain Tia 5-year risk 2 % patient declined chemoprophylaxis after discussion NCI lifetime risk 6.6 % Caffiene: 3 cups coffee/day nicotine: none chocolate: daily Family History: mother: lung cancer smoker father: lung cancer, smoker Hormonal history: menarche: 16 , breast fed: no, age at first : 30 menopause: 50 hormones: none Surgical History: tubal tonsil Medical history: Low white blood cell count being followed by medical oncology diverticulosis ? left hip arthritis Social History: nicotine: none alcohol: none drugs: none - Constitutional Constitutional: Denies chills, Denies fever - EENT Eyes: denies blurred vision, denies pain Ears: deny: decreased hearing, tinnitus Ears, nose, mouth and throat: Denies headache, Denies sore throat - Breasts Breasts: bilateral: as per HPI - Cardiovascular Cardiovascular: Denies chest pain, Denies shortness of breath - Respiratory Respiratory: Denies cough - Gastrointestinal Gastrointestinal: Denies abdominal pain, Denies diarrhea, Denies nausea, Denies vomiting - Genitourinary (Female) Genitourinary: Denies dysuria, Denies hematuria - Menstruation Menstruation: Reports postmenopausal - Musculoskeletal Musculoskeletal: Denies myalgias - Integumentary Integumentary: Denies pruritus, Denies rash - Neurological Neurological: Denies numbness, Denies weakness - Psychiatric Psychiatric: Denies anxiety, Denies depression - Endocrine Comment: intentional weight change 28 pounds last two years Endocrine: Reports weight change - Hematologic/Lymphatic Hematologic/Lymphatic: Reports as per HPI - Allergic/Immunologic Allergic/Immunologic: Reports as per HPI Objective - Vital Signs Vital signs: Vital Signs Temp 97.8 F 01/26/25 09:48 Pulse 66 01/26/25 09:48 Resp 16 01/26/25 09:48 BP 182/75 01/26/25 09:48 Pulse Ox 100 01/26/25 09:48 FiO2 Intake & Output 01/25/25 01/26/25 01/26/25 18:59 06:59 18:59 Weight 76.657 kg - Constitutional General appearance: Present: cooperative - EENT Eyes: Present: EOMI ENT: Present: hearing grossly normal - Neck Neck: Present: normal ROM - Respiratory Respiratory: bilateral: CTA - Cardiovascular Rhythm: regular Heart sounds: normal: S1, S2 - Integumentary Integumentary: Present: normal turgor - Musculoskeletal Musculoskeletal: Present: gait normal - Psychiatric Psychiatric: Present: A&O x's 3, appropriate affect, intact judgment & insight - Additional findings Additional findings: Breast Exam: BRA: 40D inspection: Bilateral grade 2 ptosis Palpation: Right breast: Multi-positional exam fibrocystic changes no dominant masses or nodules of concern Right axilla: No adenopathy of concern Left breast: Multi-positional exam fibrocystic changes no dominant masses or nodules of concern Left axilla: No adenopathy of concern Assessment and Plan Assessment: Impression: Fibrocystic breast changes Stable right breast status post stereotactic core biopsy 01-17-22 bilateral mammogram on 01-23-25 BIRAD 2 Plan: Bilateral mammogram 1 year, January 2026 with follow up follow up sooner any concerns Cc: Dr. Sykes
== END ==
LOC: WWCWWP 09:39
PROVIDERS: ATTEND Surgery
DX: N60.19 Diffuse cystic mastopathy of unspecified breast (principal); Z87.891 Personal history of nicotine dependence; Z98.890 Other specified postprocedural states

== ENCOUNTER → 2025-03-23 | Outpatient (CLI) | payer MEDICARE, BC ==
[2025-03-23 15:23] LABS: African American GFR (CKD) >90 (>60 ml/min/1.73 sqM); Blood Urea Nitrogen 17 mg/dL (7-17); Non-African American GFR(CKD) 89 (>60 ml/min/1.73 sqM)
--- NOTE | 2025-03-23 17:25 | CT ---
EXAMINATION TYPE: CT ChestAbdPelvis w con DATE OF EXAM: 03/23/2025 4:26 PM COMPARISON: None. CLINICAL INDICATION: Female, 69 years old with history of R59.0 LOCALIZED ENLARGED LYMPH NODES, TECHNIQUE: CT imaging performed with sagittal coronal reformats. CT scan of the chest, abdomen and pe lvis is performed with Oral Contrast and with IV Contrast, patient injected with 100 mL of Isovue [address] DLP: 1204 mGycm, Automated exposure control for dose reduction was used. FINDINGS: CT Chest: LUNGS: The lungs are clear and free of infiltrate or atelectasis. No pulmonary nodule or mass is det ected. No pleural effusion or CT evidence of interstitial lung disease. MEDIASTINUM: Thoracic aorta is of normal caliber. The heart is not enlarged. No evidence for media stinal mass or adenopathy. HEART: Size within normal limits. No significant coronary artery calcifications. HILAR STRUCTURES: No evidence for mass. No hilar adenopathy is appreciated. OTHER: No significant abnormality. CONTRAST CT ABDOMEN AND PELVIS FINDINGS: LIVER/GB: No calcified gallstones. No space occupying hepatic lesion. Biliary tree is of normal ca liber. PANCREAS: No inflammation. No distinct mass. SPLEEN: No splenic enlargement. No lesion seen. ADRENALS: No nodule. No thickening. KIDNEYS/BLADDER: No hydronephrosis. No nephrolithiasis. No disctinct renal mass. BOWEL: Mild scattered diverticulosis without diverticulitis. Normal appendix. Normal bowel caliber. No inflammation. GENITAL ORGANS: No gross abnormality. LYMPH NODES: No greater than 1cm abdominal or pelvic lymph nodes are appreciated. AORTA: No significant abnormality. OSSEOUS STRUCTURES: No significant abnormality is seen. OTHER: No significant additional abnormality is seen. IMPRESSION: 1. Mild scattered diverticulosis without diverticulitis. [facility], , 03/23/2025 5:22 PM
== END | disposition home or self-care (01) ==
LOC: RADCTMAIN 14:24
PROVIDERS: ATTEND Internal Medicine Hematology & Oncology
DX: K57.30 Diverticulosis of large intestine without perforation or abscess without bleeding (principal); R59.0 Localized enlarged lymph nodes
CPT/HCPCS: 82565; 84520; 71260; 74177; 36415; Q9967